=== PATIENT | male | born 1955 | race Caucasian/White ===

== ENCOUNTER → 2016-04-30 | Day surgery (SDC) | payer OTHER ==
[~2016-04-30] MED LIST: ALBUTEROL MININEB; ALBUTEROL17 GM INH; ASPIRIN PO; DURAGESIC; DURAGESIC25 MCG EXT; FLEXERIL10 M1 PO; IMDUR PO; KLONOPIN PO; LEXAPRO PO; LISINOPRIL PO; MORPHINE SULFAT30 M3 PO; MS CONTIN15 MG PO; NIASPAN PO; PLAVIX PO; SPIRIVA18 MCG INH; SYNTHROID PO; TOPROL XL PO; TRAZODONE; VITAMIN D50000 UNIT PO; ZETIA PO
--- NOTE | ~2016-04-30 | OR ---
Unit #: [id number] #: [id number] Patient: JOSE ALEJANDRO BURTON [id number] [address] [address] [id number] MR#: [id number] NAME: JOSE ALEJANDRO BURTON. ROOM: Date of Procedure: 04/30/2016 Admission Date: 04/30/2016 Surgeon: Doug Bell M.D. : 1955 Attending Physician: Doug Bell M.D. Primary Care Physician: Kennedy Meade M.D. OPERATIVE REPORT SERVICES PROVIDED 1. Therapeutic caudal epidural steroid injection. 2. Fluoroscopy of the lumbosacral spine. 3. IV sedation to facilitate the above. PREOPERATIVE DIAGNOSES 1. Lumbar post laminectomy syndrome. 2. Chronic obstructive pulmonary disease. 3. History of coronary artery disease, status post myocardial infarction, status post percutaneous transluminal coronary angioplasty and stent placement, currently on Plavix. 4. Status post laminectomy and diskectomy, lumbar spine multilevel. POSTOPERATIVE DIAGNOSES 1. Lumbar post laminectomy syndrome. 2. Chronic obstructive pulmonary disease. 3. History of coronary artery disease, status post myocardial infarction, status post percutaneous transluminal coronary angioplasty and stent placement, currently on Plavix. 4. Status post laminectomy and diskectomy, lumbar spine multilevel. PROCEDURE PERFORMED Caudal epidural steroid injection using fluoroscopy. FOLLOW-UP/REVIEW OF SYSTEMS/PHYSICAL EXAM Mr. Burton is here for a caudal epidural steroid injection to address the lumbar radiculopathy. He has significant relief with epidural interventions and denies side effects with medication management. He has no medical contraindications to the procedure, that was performed as follows with his consent. INDICATIONS/COMMENTS AND CONSENTS/STATEMENT OF MEDICAL NECESSITY The patient's current medications, allergies and vital signs are documented in the nursing assessment. The risks and benefits of the intervention(s) were discussed with the patient in detail including but not limited to infection, bleeding, meningitis, steroid induced side-effects, nerve damage, paralysis, spinal headaches, neuritis, persistent or worsening pain. The patient wishes to proceed. A separate pain assessment is also in the chart. I have reviewed all of this and have reviewed this with the patient. A current History and Physical is also attached. Unit #: [id number] #: [id number] Patient: JOSE ALEJANDRO BURTON DESCRIPTION OF PROCEDURE(S) 1. Monitoring and positioning: After appropriate discussions it was decided to perform the procedure under local anesthesia with supplemental intravenous sedation. Vital signs were monitored in pre, intra and post-procedure phase. Monitoring included EKG, non-invasive BP, pulse oximetry, and temperature. These are documented and were stable. Appropriate supports and restraints were used. 2. Sedation: A total of 2 mg of Versed and 100 mcg of fentanyl was administered. 3. Caudal epidural injection/fluoroscopy: The patient was placed in the prone position. Positional supports were used. Fluoroscopy of the lumbar spine was performed using a caudal angle. Sterile prep and drape with carried out with ChloraPrep. The approximate location of the sacral hiatus was determined by palpating the sacral cornu. Local anesthesia was with infiltrated with 3 mL of preservative-free 1% Lidocaine. Once anesthesia was established, a 22-gauge Tuohy epidural needle was inserted through the sacral hiatus level, sacrococcygeal ligament, epidurally, into the caudal spinal canal, using loss of resistance to saline technique, and with fluoroscopic guidance. Needle placement tested negative for subarachnoid and intravascular placement. An intra-operative epidurogram was now performed. Intra-operative epidurogram: 2 milliliter(s) of Isovue-M300 was injected through the epidural needle under continuous fluoroscopy. The dye was seen to spread to L5 in the cephalad direction, and to the sacral hiatus in the caudal direction. The spread of the dye was uniform and bilateral. 1 milliliter of preservative-free normal saline was used to irrigate the dye off the epidural space. There was no intravascular or intrathecal spread of contrast. A caudal epidural steroid injection was now performed using total of 10 mL of solution containing 0.7% lidocaine and 80 mg of Depo-Medrol. Fluoroscopic imaging confirmed spread of medication. The needle was then removed intact. The skin was washed off. Prep solution and dressings were applied at the injection site. The patient tolerated the procedure well. The patient was then observed in the recovery area for 30 minutes. RESULTS The patient had a consistent block with the dose of local anesthetic used. Pain relief was satisfactory. There were no complications or side effects. DISCHARGE CONDITION 1. Patient was discharged in satisfactory condition accompanied by a family member. 2. Post-procedure instructions were given. PLAN(S) Patient was advised to return to the clinic in 2 months for re-assessment and office visit. I thank the patient's referring physician for the opportunity to participate in the care of this patient. Please do not hesitate to call for any questions regarding this patient's pain management. Dictated by... Doug Bell M.D. Unit #: [id number] #: [id number] Patient: JOSE ALEJANDRO BURTON/sue TD: 04/30/2016 18:59 JOB #: [id number] OPERATIVE REPORT X Doug Bell MD X PROCEDURE OPERATIVE NOTE
== END | disposition home or self-care (01) ==
LOC: CCSC 07:17
DX: J44.9 Chronic obstructive pulmonary disease, unspecified (principal); I25.10 Atherosclerotic heart disease of native coronary artery without angina pectoris; I25.2 Old myocardial infarction; F17.210 Nicotine dependence, cigarettes, uncomplicated; Z95.5 Presence of coronary angioplasty implant and graft; Z79.01 Long term (current) use of anticoagulants; Z98.890 Other specified postprocedural states; M19.90 Unspecified osteoarthritis, unspecified site; Z88.8 Allergy status to other drugs, medicaments and biological substances
CPT/HCPCS: J1040; J2250; J3010